=== PATIENT | female | born 2000 | race Caucasian/White ===

== ENCOUNTER 2023-10-17 01:19 | Emergency (ER) | payer MEDICAID, SELFPAY ==
[2023-10-17 01:25] VITALS: BP 128/92; BP 131/79; PULSE 60; PULSE 87; RESP 18; TEMP 36.8; O2SAT 98; BMI 38.7
--- NOTE | 2023-10-17 05:20 | ED.DENTAL ---
HPI - Dental/Oral General Chief complaint: Dental/Oral Stated complaint: tooth pain,eye swelling, redness and discharge Time Seen by Provider: 10/17/23 05:20 Source: patient Mode of arrival: ambulatory Limitations: no limitations History of Present Illness HPI Narrative: 23 yo female no sig PMH here with 5 days L upper toothache that she has had issues with before. Then noted some chills tonighta nd bilateral eye redness and drainage L > R. Does not wear contact lens MD Complaint: tooth pain Location: Tooth # (13) Onset (ago): day(s) (5) Duration: constant Severity: moderate Relieving factors: nothing Exacerbating factors: chewing Context: history of dental caries Associated symptoms: other (eye pain, facial swelling, gum pain) Treatment prior to arrival: oral analgesic Related Data Previous Rx's Medication Instructions Recorded amoxicillin 875 mg-potassium 1 tab PO BID #14 tabs 10/17/23 clavulanate 125 mg tablet erythromycin 5 mg/gram (0.5 %) eye 0.5 inch ophthalmic (eye) BID 7 10/17/23 ointment days #3.5 grams ibuprofen 600 mg tablet 600 mg PO Q6H PRN pain #30 tabs 10/17/23 Allergies Allergy/AdvReac Type Severity Reaction Status Date / Time No Known Allergies Allergy Verified 10/17/23 01:29 Review of Systems Review of Systems: Constitutional : No Fever, No Chills ENT/Mouth : No swallowing difficulty, no change in voice, positive dental pain, positive jaw pain, positive facial swelling Eyes: pos Eye Pain, No Swelling, pos discharge Cardiovascular : No Chest Pain, No SOB Respiratory : No Cough, No Sputum Gastrointestinal : No Nausea, No Vomiting, No Diarrhea Genitourinary : No Dysuria Musculoskeletal : No Myalgias Skin : No rash Neuro : No Weakness, No Numbness, No Headache PMFSH Past Medical History Attestation statement: The following information was validated with the patient. Medical History No pertinent past medical history Social History Social History (Updated 10/17/23 @ 05:23 by Natalie Stearns DO) Patient Tobacco Use Status: Never used Tobacco Physical Exam Vital Signs: Vital Signs: Last Vital Signs Temp 98.2 F 10/17/23 01:25 Pulse 60 10/17/23 01:25 Resp 18 10/17/23 01:25 BP 131/79 10/17/23 01:25 Pulse Ox 98 10/17/23 01:25 O2 Del Method Room Air 10/17/23 01:25 BMI result Body Mass Index 38.7 Appearance: Alert. Oriented X3. No acute distress. Eyes: Pupils equal, round and reactive to light. normal EOM - mild injection and yellow drainage from both eyes ENT: Pharynx normal. no trismus l upper tooth first molar ttp but no fluctuance or abscess felt, no sublingual or submandibular swelling, L cheek area and L periorbital area mild swelling and redness but minimal Neck: Normal inspection. Neck supple. CVS: Normal heart rate and rhythm. Pulses normal. Respiratory: No respiratory distress. Breath sounds normal. Abdomen: Soft and nontender. Skin: Skin warm and dry. Normal skin color. Normal skin turgor. Extremities: No lower extremity edema. No calf ttp Neuro: Oriented X 3. No motor deficit. No sensory deficit. Medical Decision Making Medical Decision Making [facility] Narrative: 23 yo female with toothache but also mild L facial swelling and mild L periorbital swelling but no signs of ocular involvement as well as mild conjunctivitis - will start on eye ointment and augmentin. She is not toxic appearing and stale for DC at this time Differential Diagnosis Differential Diagnoses: The differential diagnosis associated with the presentation includes viral syndrome, toothache cellulitis Prescription Management I considered prescription management with: Pain Medication and Antibiotic Discharge Plan Discharge Clinical Impression: Toothache, Conjunctivitis, Preseptal cellulitis of left eye Patient Disposition: Home, Self-Care Instructions: Cellulitis (ED), Toothache (ED), Conjunctivitis (ED) Additional Instructions: return for fevers, worsening, swelling, inability to eat or drink, pain in eye that is severe, loss of vision or any other concerns. On amoxicillin-clavulanate, softer bowel movements are to be expected. Call your provider if you move your bowels more than 4 times a day, your bowel movements are almost all liquid, or you get a rash.? Prescriptions: New ibuprofen 600 mg tablet 600 mg PO Q6H PRN (Reason: pain) Qty: 30 0RF amoxicillin-pot clavulanate 875-125 mg tablet 1 tab PO BID Qty: 14 0RF erythromycin 5 mg/gram (0.5 %) ointment 0.5 inch ophthalmic (eye) BID 7 Days Qty: 3.5 0RF Stand Alone Forms: Work/School Release
[2023-10-17] MEDS: Acetaminophen 325 MG TABLET 975 MG PO (05:25)
[2023-10-17] MEDS: Erythromycin Base 0.5% Oph Oin 1 GM TUBE 1 CM EYE-BOTH (05:26)
[2023-10-17] MEDS: Amoxicillin/Potassium Clav 875 MG TABLET PO (05:26)
[2023-10-17 05:29] VITALS: BP 126/52; PULSE 64; RESP 18; O2SAT 97
== END 2023-10-17 05:38 | disposition home or self-care (01) ==
LOC: HO.ED 05:38
PROVIDERS: Emergency Provider Emergency Medicine
DX: H10.9 Unspecified conjunctivitis (principal); L03.213 Periorbital cellulitis; K08.89 Other specified disorders of teeth and supporting structures
CPT/HCPCS: 99283